=== PATIENT | male | born 1960 | race Caucasian/White ===

== ENCOUNTER 2018-03-31 21:16 | Emergency (ER) | payer BC ==
--- NOTE | 2018-04-02 17:22 | EKG ---
Test Reason : LACY HTN Blood Pressure : / mmHG Vent. Rate : 065 BPM Atrial Rate : 065 BPM P-R Int : 184 ms QRS Dur : 110 ms QT Int : 390 ms P-R-T Axes : 043 -05 007 degrees QTc Int : 405 ms Normal sinus rhythm Possible Left atrial enlargement Septal infarct , age undetermined Abnormal ECG Confirmed by AUREA LOPEZ ([id number]), senior technical editor FRANCINE LI ([id number] on 04/02/2018 5:22:11 PM Referred By: Confirmed By:AUREA LOPEZ
== END 2018-03-31 22:44 | disposition home or self-care (01) ==
LOC: ERS 21:16
DX: I10 Essential (primary) hypertension (principal); F17.210 Nicotine dependence, cigarettes, uncomplicated; Z79.899 Other long term (current) drug therapy
CPT/HCPCS: 93005

== ENCOUNTER 2019-11-06 08:41 | Outpatient (CLI) | payer BC ==
--- NOTE | 2019-11-06 09:04 | ULT ---
Exam: Bilateral renal ultrasound HISTORY: Chronic kidney disease COMPARISON: None FINDINGS: Right kidney: Normal cortical echotexture. No hydronephrosis. Right kidney measurements: 6.2 x 11.5 x 6.4 cm. Left kidney: Normal cortical echotexture. No hydronephrosis Left kidney measurements 6.4 x 12.1 x 7.5 cm. Urinary bladder: Normal mucosa. Bladder volume is 263 mL. IMPRESSION: No hydronephrosis.
== END 2019-11-06 08:42 | disposition home or self-care (01) ==
LOC: BICULT 08:41
PROVIDERS: ATTEND Internal Medicine Nephrology
DX: N18.3 Chronic kidney disease, stage 3 (moderate) (principal)
CPT/HCPCS: 76770

== ENCOUNTER 2019-11-17 08:35 | Outpatient (CLI) | payer BC | END 2019-11-17 08:36 | disposition home or self-care (01) | LOC: CTENTCT 08:35 | PROVIDERS: ATTEND Specialist | DX: J32.9 Chronic sinusitis, unspecified (principal) | CPT/HCPCS: 70486 ==

== ENCOUNTER 2022-08-10 17:30 | Outpatient (CLI) | payer BC | END 2022-08-10 17:31 | disposition home or self-care (01) | LOC: SLEEPLAB 17:30 | PROVIDERS: ATTEND Internal Medicine Pulmonary Disease | DX: G47.33 Obstructive sleep apnea (adult) (pediatric) (principal); R53.83 Other fatigue; E66.9 Obesity, unspecified; R06.83 Snoring; G47.00 Insomnia, unspecified; Z68.38 Body mass index [BMI] 38.0-38.9, adult | CPT/HCPCS: 95800 ==